=== PATIENT | female | born 1955 | race Caucasian/White ===

== ENCOUNTER 2019-08-09 15:43 | Outpatient (CLI) | payer BC, SELFPAY ==
--- NOTE | ~2019-08-09 | MM_ITS ---
EXAMINATION: MM screening aliyah BI w abbi HISTORY: Screening mammogram TECHNIQUE: Craniocaudal and mediolateral oblique 3-D tomosynthesis images were obtained and synthetic 2-D images were generated. CAD analysis was submitted and interpreted. COMPARISON: Comparison to multiple prior studies sequentially, with oldest reviewed study dated 01/26. BREAST PARENCHYMAL COMPOSITION: There are scattered areas of fibroglandular density. FINDINGS: There is no evidence of suspicious mass, calcification, or architectural distortion to sugg est malignancy in either breast. There has been no suspicious interval change. IMPRESSION: 1. No mammographic evidence of malignancy. 2. Recommend routine screening mammography in one year. BI-RADS Category 1: Negative Reviewed, dictated and finalized at location A. SIONAL BABYSITTER
== END 2019-08-09 15:44 | disposition home or self-care (01) ==
PROVIDERS: PCP Family Medicine; Visit Provider Physician Assistant
DX: Z12.31 Encounter for screening mammogram for malignant neoplasm of breast (principal)
CPT/HCPCS: 77063; 77067

== ENCOUNTER 2019-12-20 18:25 | Emergency (ER) | payer BC, SELFPAY ==
--- NOTE | ~2019-12-20 | XR_ITS ---
XR wrist LT min 3V 12/20/2019 19:21 Indication: Left wrist pain Procedure: 4 views left wrist Comparison: 04/05/2015 Findings: There is a healed distal radial fracture. There is mild dorsal tilt of the lunate. No evide nce for scapholunate dissociation. Osteopenia. No acute fracture or traumatic malalignment. No focal soft tissue abnormality. Impression: 1: No acute fracture. Reviewed, dictated and finalized at location A. Impression: 1: No acute fracture.
[2019-12-20 18:59] VITALS: BP 146/97; PULSE 77; RESP 18; TEMP 36.4; O2SAT 99
--- NOTE | 2019-12-20 19:16 | ED.UPPEXIN ---
HPI - Extremity Injury (Upper) General Chief Complaint: Extremity Injury, Upper Stated Complaint: left wrist pain Time Seen by Provider: 12/20/19 19:05 History of Present Illness HPI narrative: Patient is a 64-year-old female who presents ER with left wrist pain. She was walking outside and tripped over some IV. Fell on outstretched hand. Has tenderness over the dorsum of her wrist and over the ulnar aspect. Increased pain with extension and making a fist. Only slight swelling and no obvious bruising. She has no numbness or tingling. No trauma to her head. She is not on a blood thinner. Related Data Home Medications Medication Instructions Recorded Confirmed flaxseed oil 1,000 mg capsule 1,000 mg PO DAILY 04/29/19 12/20/19 fluoxetine 40 mg capsule 40 mg PO DAILY 04/29/19 12/20/19 furosemide 20 mg tablet 40 mg PO QAM tablet 04/29/19 12/20/19 multivitamin 1 tablet PO DAILY 04/29/19 12/20/19 omeprazole 20 mg PO DAILY 12/20/19 12/20/19 Allergies Allergy/AdvReac Type Severity Reaction Status Date / Time hydrocodone Allergy Intermediate JUST ABOUT Verified 12/20/19 19:11 PASSED OUT, CLAMMY codeine Allergy Unknown Sweating Verified 12/20/19 19:11 Sulfa (Sulfonamide Allergy Unknown Unknown Verified 12/20/19 19:11 Antibiotics) Review of Systems Musculoskeletal: Musculoskeletal: Reports arthralgias and Reports joint swelling Integumentary/Breasts: Skin/Breast: Denies erythema and Denies rash Comments: No abrasions Neurologic: Denies syncope, Denies focal weakness and Denies numbness [facility] Past Medical History Medical History (Updated 12/20/19 @ 19:41 by Abhijeet Last MD) Chronic gastroesophageal reflux disease Depression Diverticulitis Essential hypertension Surgical History Surgical History (Updated 12/20/19 @ 19:18 by Abhijeet Last MD) History of cholecystectomy S/P partial hysterectomy Family History Family History (Updated 07/23/18 @ 15:03 by DOCTOR UNKNOWN) Sibling Diabetes mellitus Hypertension Cerebrovascular accident Mother Family history of malignant neoplasm Father Carcinoma of colon Social History Social History (Updated 08/03/19 @ 09:14 by Dionna Shafer) Smoking status: Never smoker Alcohol intake: never Substance use: never Substance use type: does not use Gender identity (if verbalized by the patient): Female Exam Narrative: Exam Narrative: GENERAL: Well-appearing, well-nourished, and in no acute distress. HEART: Regular rate and rhythm. Normal peripheral pulses. EXTREMITIES: Focused exam left upper extremity reveals tenderness over the dorsal aspect of the wrist extending around to the lateral aspect. Limited extension due to pain but flexion is normal. No anatomic snuffbox tenderness. No numbness or tingling. Normal range of motion of the fingers and elbow. Only slight swelling over the dorsal aspect of the wrist. SKIN: Warm, dry, no rash. NEURO: No focal deficits. Alert and oriented x3. PSYCH: Normal mood and affect. Course Vital Signs Vital signs: Vital Signs Temperature 97.5 F L 12/20/19 18:59 Pulse Rate 77 12/20/19 18:59 Respiratory Rate 18 12/20/19 18:59 Blood Pressure 146/97 H 12/20/19 18:59 Pulse Oximetry 99 12/20/19 18:59 Temperature 97.5 F L 12/20/19 18:59 Pulse Rate 77 12/20/19 18:59 Respiratory Rate 18 12/20/19 18:59 Blood Pressure 146/97 H 12/20/19 18:59 Pulse Oximetry 99 12/20/19 18:59 MDM - Extremity Injury (Upper) Imaging Data Radiologist's impression: ITS Impressions Wrist X-Ray 12/20/19 19:22 Impression: 1: No acute fracture. Discharge Plan Discharge Clinical Impression: Left wrist sprain Patient Disposition: Home, Self-Care Condition: Stable Instructions: Wrist Sprain (ED) Additional Instructions: Return to the ER if you have chest pain or shortness of breath, cannot keep down food or water, you have fever over 100.4 degrees.
[2019-12-20 19:50] VITALS: BP 153/88; PULSE 74; RESP 18; TEMP 36.7; O2SAT 93
== END 2019-12-20 19:50 | disposition home or self-care (01) ==
PROVIDERS: Emergency Provider Emergency Medicine; PCP Family Medicine
DX: S63.502A Unspecified sprain of left wrist, initial encounter (principal); K21.9 Gastro-esophageal reflux disease without esophagitis; I10 Essential (primary) hypertension; F32.9 Major depressive disorder, single episode, unspecified; W18.09XA Striking against other object with subsequent fall, initial encounter
CPT/HCPCS: 73110; 99283

== ENCOUNTER 2020-05-16 07:24 | Outpatient (CLI) | payer BC, SELFPAY ==
[2020-05-16 07:43] LABS: Basophils Percent Auto 0.7 % (0.2-1.2); Eosinophils Absolute Auto 0.3 K/mm3 (0-0.3); Eosinophils Percent Auto 4.2 % (0-4.4); Hematocrit 34.8 % (37.0-47.0); Hemoglobin 11.5 g/dL (12.0-15.0); Immature Granulocyte Absolute 0.02 K/mm3 (0.00-0.031); Immature Granulocyte Percent A 0.3 % (0-0.5); Lymphocytes Absolute Auto 1.83 K/mm3 (0.9-3.2); Lymphocytes Percent Auto 30.9 % (18.3-44.2); Mean Corpuscular Hemoglobin 29.1 pg (26-34); Mean Corpuscular Volume 88.1 fl (80-100); Mean Platelet Volume 10.3 fl (7.4-10.4); Monocytes Absolute Auto 0.5 K/mm3 (0.1-0.6); Monocytes Percent Auto 7.8 % (2.6-8.5); Neutrophils Absolute Auto 3.3 K/mm3 (1.3-6.7); Neutrophils Percent Auto 56.1 % (45.5-73.1); Platelet Count Result 222 k/mm3 (150-375); Red Blood Count 3.95 M/mm3 (4.2-5.4); Red Cell Distribution Width 12.7 % (11.5-14.5); White Blood Count 5.9 K/mm3 (4.5-10.0)
[2020-05-16 07:52] LABS: Alanine Aminotransferase 20 U/L (4-35); Albumin Level 4.1 g/dL (3.5-5.1); Alkaline Phosphatase 91 U/L (38-126); Anion Gap 6 mmol/L (8-16); Aspartate Amino Transferase 28 U/L (14-36); Bilirubin,Total 0.5 mg/dL (0.2-1.3); Blood Urea Nitrogen 14 mg/dL (7-17); Carbon Dioxide 31 mmol/L (22-30); Chloride 102 mmol/L (98-107); Cholesterol 191 mg/dL (0-200); Estimated Glomerular Filt Rate > 60; Glucose 103 mg/dL (65-105); HDL Direct 57 mg/dL; Potassium 4.2 mmol/L (3.4-5.0); Sodium 139 mmol/L (137-145); Triglycerides 167 mg/dL (<150)
[2020-05-16 08:03] LABS: LDL Cholesterol Direct 79 mg/dL
[2020-05-16 08:48] LABS: Iron 67 ug/dL (37-170)
[2020-05-16 08:57] LABS: Percent Iron Saturation 18 % (20-50)
[2020-05-16 09:04] LABS: Folic Acid > 20.0 ng/mL (2.76->20)
== END 2020-05-16 07:25 | disposition home or self-care (01) ==
PROVIDERS: PCP Family Medicine; Visit Provider Nurse Practitioner Family
DX: E78.2 Mixed hyperlipidemia (principal); D64.9 Anemia, unspecified; I10 Essential (primary) hypertension
CPT/HCPCS: 36415; 80053; 80061; 82607; 82728; 82746; 83540; 83550; 85025

== ENCOUNTER 2021-01-14 18:01 | Emergency (ER) | payer OTHER, SELFPAY ==
--- NOTE | ~2021-01-14 | XR_ITS ---
EXAMINATION: XR hand RT min 3V DATE: 01/14/2021 18:17 INDICATION: Right hand injury. TECHNIQUE: 3 views of right hand were obtained. COMPARISON: Right hand radiographs 12/28/2016 FINDINGS: Bone alignment is normal. No fracture. There is mild osteoarthritis of first carpometacarpa l joint, first and second metacarpophalangeal joints, and many of the interphalangeal joints. There i s moderate osteoarthritis of second and third distal interphalangeal joints. IMPRESSION: 1. Polyarticular osteoarthritis. Reviewed, dictated and finalized at location A.
[2021-01-14 18:17] VITALS: BP 123/69; PULSE 63; RESP 16; TEMP 36.4; O2SAT 99
--- NOTE | 2021-01-14 18:20 | ED.GENADULT ---
HPI - General Adult General Chief complaint: Extremity Injury, Upper Stated complaint: rt hand middle finger injury Source: patient Mode of arrival: ambulatory Limitations: no limitations History of Present Illness HPI narrative: 65 y/o female. PMHx includes GERD, HTN. Presents to [facility] today with acute complaints of RT middle finger injury/pain S/P moving incident last HS. Client tells me that she had been moving a couch through a 'tight doorway' when she jammed her finger into the door frame . She notes to have been experiencing increased bruising and pain to area since incident. Ice pack application has provided some relief. No additional acute complaints of injury has been relayed upon exam. Related Data Home Medications Medication Instructions Recorded Confirmed flaxseed oil 1,000 mg capsule 1,000 mg PO DAILY 04/29/19 01/08/21 multivitamin 1 tablet PO DAILY 04/29/19 01/08/21 Allergies Allergy/AdvReac Type Severity Reaction Status Date / Time hydrocodone Allergy Intermediate JUST ABOUT Verified 01/14/21 18:22 PASSED OUT, CLAMMY codeine Allergy Unknown Sweating Verified 01/14/21 18:22 Sulfa (Sulfonamide Allergy Unknown Unknown Verified 01/14/21 18:22 Antibiotics) Review of Systems Review of Systems: CONSTITUTIONAL: Denies fever, chills, sweats. EYES: Denies visual changes, redness, discharge. ENT: Denies rhinorrhea, congestion, sore throat, otalgia. CARDIOVASCULAR: Denies chest pain, palpitations, edema. RESPIRATORY: Denies dyspnea, wheezing, cough GASTROINTESTINAL: Denies abdominal pain, nausea, vomiting, diarrhea. GENITOURINARY: Denies dysuria, hematuria, abnormal discharge SKIN: Denies rash or itching. MUSCULOSKELETAL: RT middle finger pain, injury. Denies additional joint pain, or myalgia. NEUROLOGIC: Denies numbness, or focal weakness. PSYCHIATRIC: Denies anxiety or depression. All systems reviewed & are unremarkable except as noted in HPI and below PMFSH Past Medical History Medical History Chronic gastroesophageal reflux disease Depression Diverticulitis Essential hypertension Surgical History Surgical History History of cholecystectomy S/P partial hysterectomy Family History Family History Sibling Diabetes mellitus Hypertension Cerebrovascular accident Mother Family history of malignant neoplasm Father Carcinoma of colon Social History Social History Smoking status: Never smoker Alcohol intake: never Substance use: never Substance use type: does not use Gender identity (if verbalized by the patient): Female Exam Narrative: GENERAL: This is a well-nourished, well-developed adult, in no apparent distress. HEAD: normocephalic, atraumatic. EYES: PERRL. Sclera clear/white. EARS: External ears normal, auditory canals clear and without drainage, TMs normal. NOSE: External nose normal. Positive Rhinorrhea, no obstruction, nares patent. THROAT: Mucous membranes moist, posterior pharynx clear. No exudates. NECK: Neck supple, non-tender without lymphadenopathy, masses or thyromegaly. CARDIOVASCULAR: Regular rate and rhythm without murmurs, gallops, or rubs. Normal pulses RUE. RESPIRATORY: Clear to auscultation. Breath sounds equal bilaterally. No wheezes, rales, or rhonchi. GASTROINTESTINAL: Abdomen soft, non-tender, nondistended. Bowel sounds are active. No guarding. SKIN: warm, intact with no suspicious lesions or rash, good texture and turgor. NEURO: Normal sensation and discrimination RUE. No focal neurologic deficits. MUSCULOSKELETAL: With mild soft tissue swelling and ecchymosis overlying RT middle PIP. I do not appreciate an obvious bony deformity. ROM is intact. Remainder of musculoskeletal exam is Negative.
== END 2021-01-14 18:49 | disposition home or self-care (01) ==
PROVIDERS: Emergency Provider Nurse Practitioner Adult Health; PCP Family Medicine
DX: S63.632A Sprain of interphalangeal joint of right middle finger, initial encounter (principal); W22.09XA Striking against other stationary object, initial encounter; K21.9 Gastro-esophageal reflux disease without esophagitis; I10 Essential (primary) hypertension; F32.9 Major depressive disorder, single episode, unspecified; Z90.711 Acquired absence of uterus with remaining cervical stump
CPT/HCPCS: 73130; 99213; G0463

== ENCOUNTER 2021-03-19 01:42 | Day surgery (SDC) | payer OTHER, SELFPAY ==
[2021-03-07 12:13] VITALS: BMI 32.5
[2021-03-19 06:58] VITALS: BP 149/88; PULSE 77; RESP 17; TEMP 36.1; O2SAT 97
[2021-03-19] MEDS: LACTATED RINGERS 1,000 ML 150 ML IV CONT (07:10)
--- NOTE | 2021-03-19 07:51 | P.PNAN_ITS ---
Anes - Initial Pre Proc Eval Procedure: Operation Date: 03/19/21 08:00 Proposed Procedures p Screening Colonoscopy - Vishal Pierce MD Date/Time: 03/19/21 07:52 Surgeon: Vishal Pierce MD Pre Op Diagnosis: family hx of colon ca Patient Data Age: 65 Gender: F Height: 1.65 m Weight: 99.2 kg Last Vital Signs Temp 97.0 F L 03/19/21 06:58 Pulse 77 03/19/21 06:58 Resp 17 03/19/21 06:58 BP 149/88 H 03/19/21 06:58 Pulse Ox 97 03/19/21 06:58 Allergies Allergy/AdvReac Type Severity Reaction Status Date / Time hydrocodone Allergy Intermediate JUST ABOUT Verified 03/19/21 06:55 PASSED OUT, CLAMMY codeine Allergy Mild Sweating Verified 03/19/21 06:55 Sulfa (Sulfonamide Allergy Unknown Unknown Verified 03/19/21 06:55 Antibiotics) Home Medications Medication Instructions Recorded Confirmed Type flaxseed oil 1,000 mg capsule 1,000 mg PO DAILY 04/29/19 03/07/21 History multivitamin 1 tablet PO DAILY 04/29/19 03/07/21 History aspirin 81 mg tablet,delayed 81 mg PO DAILY #1 tablet 05/29/20 03/07/21 Rx release omeprazole 20 mg capsule,delayed 20 mg PO DAILY #90 cap 12/04/20 03/07/21 Rx release fluoxetine 40 mg capsule 40 mg PO DAILY #90 cap 02/25/21 03/07/21 Rx furosemide 20 mg tablet 20 mg PO QAM #90 tablet 02/25/21 03/07/21 Rx quinapril 20 mg tablet 20 mg PO DAILY #90 tablet 02/25/21 03/07/21 Rx Patient hx anesthesia problems: none Family hx anesthesia problems: none Results Review: All pre-operative results and documents have been reviewed as part of the pre-operative evaluation. [facility] Past Medical History Medical History Chronic gastroesophageal reflux disease Depression Diverticulitis Essential hypertension Surgical History Surgical History History of cholecystectomy S/P partial hysterectomy Family History Family History Sibling Diabetes mellitus Hypertension Cerebrovascular accident Mother Family history of malignant neoplasm Father Carcinoma of colon Social History Social History (System 02/27/21 @ 07:42 by Kristina Morin) Smoking status: Never smoker Alcohol intake: never Substance use: never Substance use type: does not use Living arrangements: with family Gender identity (if verbalized by the patient): Female Spiritual care concerns: No Anes - Eval Final PreProcedure Day of Procedure 03/19/21 07:52 Patient weight: obese Heart: regular rate and rhythm Lungs: clear to auscultation Airway: Mallampati scale class II Neurological: alert and oriented Last oral intake: >/= 8 hours ASA classification: III Emergent: no Anesthetic plan: proceed Anesthesia type and monitoring: general GIVS and standard monitoring Results Review: All pre-operative results and documents have been reviewed as part of the pre-operative evaluation. Informed Consent: The patient's anesthetic plan and its attendant risks and benefits were discussed with the patient/family/POA. Questions were solicited and answers provided to the satisfaction of the patient/family/POA.
--- NOTE | 2021-03-19 08:10 | WPDGICN ---
Assessment and Plan Assessment and plan (1) Family history of colon cancer in father: Code(s): Z80.0 - Family history of malignant neoplasm of digestive organs Status: Acute Assessment and Plan: Patient's father has had colon cancer for this reason screening colonoscopy is been advised 5 year intervals. Colonoscopy will be arranged further recommendations will be given after endoscopy. GI Consult Note Consult date/time: 03/19/21 08:10 HPI: Valeria Weaver is a 65 year old female Presents for screening colonoscopy. Patient's family history is significant her father had colon cancer. Patient reports that her weight appetite bowel movements are normal. Her last colonoscopy 5 years ago was unremarkable. She presents today for follow-up screening colonoscopy. Review of Systems Review of Systems: All systems reviewed & are unremarkable except as noted in HPI and below PMFSH Past Medical History Medical History Chronic gastroesophageal reflux disease Depression Diverticulitis Essential hypertension Surgical History Surgical History History of cholecystectomy S/P partial hysterectomy Family History Family History Sibling Diabetes mellitus Hypertension Cerebrovascular accident Mother Family history of malignant neoplasm Father Carcinoma of colon Social History Social History (System 02/27/21 @ 07:42 by Kristina Morin) Smoking status: Never smoker Alcohol intake: never Substance use: never Substance use type: does not use Living arrangements: with family Gender identity (if verbalized by the patient): Female Spiritual care concerns: No Meds Home Medications and Allergies Home Medications Medication Instructions Recorded Confirmed Type flaxseed oil 1,000 mg capsule 1,000 mg PO DAILY 04/29/19 03/07/21 History multivitamin 1 tablet PO DAILY 04/29/19 03/07/21 History aspirin 81 mg tablet,delayed 81 mg PO DAILY #1 tablet 05/29/20 03/07/21 Rx release omeprazole 20 mg capsule,delayed 20 mg PO DAILY #90 cap 12/04/20 03/07/21 Rx release fluoxetine 40 mg capsule 40 mg PO DAILY #90 cap 02/25/21 03/07/21 Rx furosemide 20 mg tablet 20 mg PO QAM #90 tablet 02/25/21 03/07/21 Rx quinapril 20 mg tablet 20 mg PO DAILY #90 tablet 02/25/21 03/07/21 Rx Allergies Allergy/AdvReac Type Severity Reaction Status Date / Time hydrocodone Allergy Intermediate JUST ABOUT Verified 03/19/21 06:55 PASSED OUT, CLAMMY codeine Allergy Mild Sweating Verified 03/19/21 06:55 Sulfa (Sulfonamide Allergy Unknown Unknown Verified 03/19/21 06:55 Antibiotics) Vital Signs Vital Signs - 24 hr 03/19/21 06:58 Temperature 97.0 F L Pulse Rate 77 Respiratory Rate 17 Blood Pressure 149/88 H Pulse Oximetry 97 Exam Narrative: physical exam reveals patient to be alert. Vital signs stable. HEENT exam is unremarkable. Patient is anicteric. Lungs are clear to auscultation and percussion. Heart is without murmur or extra sounds. Abdominal exam bowel sounds are present soft nontender with no organomegaly. Digital external rectal exam is normal.
[2021-03-19 08:38] VITALS: BP 107/61; PULSE 56; RESP 22; O2SAT 96
[2021-03-19 08:48] VITALS: BP 121/77; PULSE 61; RESP 16; O2SAT 100
[2021-03-19 08:58] VITALS: BP 135/82; PULSE 58; RESP 17; O2SAT 100
== END 2021-03-19 09:08 | disposition home or self-care (01) ==
PROVIDERS: PCP Family Medicine; Visit Provider Internal Medicine Gastroenterology
PROC: 0DJD8ZZ Inspection of Lower Intestinal Tract, Via Natural or Artificial Opening Endoscopic (ICD-10-PCS; CPT 45378; principal; 2021-03-19 08:00)
DX: Z12.11 Encounter for screening for malignant neoplasm of colon (principal); K62.1 Rectal polyp; K64.8 Other hemorrhoids; K57.30 Diverticulosis of large intestine without perforation or abscess without bleeding; Z80.0 Family history of malignant neoplasm of digestive organs; K21.9 Gastro-esophageal reflux disease without esophagitis; F32.9 Major depressive disorder, single episode, unspecified; I10 Essential (primary) hypertension; Z79.82 Long term (current) use of aspirin; E66.9 Obesity, unspecified; Z68.36 Body mass index [BMI] 36.0-36.9, adult
CPT/HCPCS: 45385; 88305; J7120

== ENCOUNTER 2021-04-19 07:50 | Outpatient (CLI) | payer OTHER, SELFPAY ==
--- NOTE | ~2021-04-19 | MM_ITS ---
EXAMINATION: MM screening aliyah BI w abbi HISTORY: Screening TECHNIQUE: Craniocaudal and mediolateral oblique 3-D tomosynthesis images were obtained and synthetic 2-D images were generated. CAD analysis was submitted and interpreted. COMPARISON: 08/09/2019. BREAST PARENCHYMAL COMPOSITION: There are scattered areas of fibroglandular density. FINDINGS: There is no evidence of suspicious mass, calcification, or architectural distortion to sugg est malignancy in either breast. There has been no suspicious interval change. IMPRESSION: 1. No mammographic evidence of malignancy. 2. Recommend routine screening mammography in one year. BI-RADS Category 1: Negative Reviewed, dictated and finalized at location A.
--- NOTE | ~2021-04-19 | DEXA_ITS ---
Bone Density Report Name: Valeria Weaver Age: 66 Sex: Female Ethnicity: White Date of : 1955 Indication: postmenopausal; height loss; prior fracture; hysterectomy; Referring Provider: Vitaly Dwyer Study: Bone densitometry was performed. Exam Date: April 19, 2021 Accession number: [id number] Bone Density: Region BMD T-score Z-score Classification AP Spine (L1-L4) 1.313 2.4 4.2 Normal Femoral Neck (Left) 0.669 -1.6 -0.1 Osteopenia Total Hip (Left) 0.839 -0.8 0.4 Normal Total Hip Bilateral Avg 0.830 -0.9 0.4 Normal Femoral Neck (Right) 0.660 -1.7 -0.1 Osteopenia Total Hip (Right) 0.821 -1.0 0.3 Normal World Health Organization criteria for BMD impression classify patients as: Normal (T-score at or above -1.0), Osteopenia (T-score between -1.0 and -2.5), or Osteoporosis (T-score at or below -2.5). 10-year Fracture Risk(1): Major Osteoporotic Fracture 14% Hip Fracture 1.7% Reported Risk Factors: [place] (), Neck BMD=0.660, BMI=39.2, previous fracture (1) FRAX(R) Version 3.08. Fracture probability calculated for an untreated patient. Fracture probability may be lower if the patient has received treatment. Clinical Information Provided by Patient: Has had a low trauma fracture Has used the following medications: Vitamin D, Calcium Has the following medical conditions: Hysterectomy Patient maximum height was 66.5 Menopause Age: 48 No regular weight bearing exercise Drinks caffeinated beverages Onset of menses at age 12 Number of children 1 Impression: The patient has low bone mass, based on the Right Femoral Neck T-score. The patient has an estimated ten-year risk of hip fracture of 1.7% and an estimated ten-year risk of major fracture of 14%, based on the WHO FRAX algorithm. The patient has risk factors, including: previous fracture. Discussion: BONE DENSITY IS LOW AT ONE OR MORE SKELETAL SITES. This patient's lowest T-score is low at one or more skeletal sites. It meets the World Health Organization's (WHO) criteria for ?low bone mass? (T-score between -1.0 and -2.5). The patient's 10-year risk of fracture as calculated by FRAX is less than the threshold where pharmacological therapy is recommended by the National Osteoporosis Foundation (NOF). However, all treatment decisions require clinical judgment and consideration of individual patient factors, including patient preferences, comorbidities, previous drug use, risk factors not captured in the FRAX model (e.g., frailty, falls, vitamin D deficiency, increased bone turnover, interval significant decline in bone density) and possible under or overestimation of fracture risk by FRAX. The patient should follow a healthful lifestyle (good nutrition with adequate calcium and vitamin D, and appropriate weight-bearing exercise). Follow-Up
== END 2021-04-19 07:51 | disposition home or self-care (01) ==
LOC: ANHIMG 07:54
PROVIDERS: PCP Family Medicine; Visit Provider Physician Assistant
DX: Z12.31 Encounter for screening mammogram for malignant neoplasm of breast (principal); Z78.0 Asymptomatic menopausal state; M85.852 Other specified disorders of bone density and structure, left thigh; M85.851 Other specified disorders of bone density and structure, right thigh
CPT/HCPCS: 77063; 77067; 77080

== ENCOUNTER 2021-07-12 08:28 | Outpatient (CLI) | payer MEDICARE, SELFPAY ==
[2021-07-12 08:55] LABS: Basophils Absolute Auto 0.1 K/mm3 (0.0-0.1); Eosinophils Absolute Auto 0.3 K/mm3 (0-0.3); Eosinophils Percent Auto 5.4 % (0-4.4); Hematocrit 35.5 % (37.0-47.0); Hemoglobin 11.7 g/dL (12.0-15.0); Immature Granulocyte Absolute 0.01 K/mm3 (0.00-0.031); Immature Granulocyte Percent A 0.2 % (0-0.5); Lymphocytes Absolute Auto 1.63 K/mm3 (0.9-3.2); Lymphocytes Percent Auto 31.3 % (18.3-44.2); Mean Corpuscular Hemoglobin 29.8 pg (26-34); Mean Corpuscular Volume 90.3 fl (80-100); Mean Platelet Volume 10.9 fl (7.4-10.4); Monocytes Absolute Auto 0.4 K/mm3 (0.1-0.6); Monocytes Percent Auto 7.1 % (2.6-8.5); Neutrophils Absolute Auto 2.9 K/mm3 (1.3-6.7); Platelet Count Result 224 k/mm3 (150-375); Red Blood Count 3.93 M/mm3 (4.2-5.4); Red Cell Distribution Width 12.9 % (11.5-14.5); White Blood Count 5.2 K/mm3 (4.5-10.0)
[2021-07-12 09:08] LABS: Add Urine Microscopic? NO; Appearance Urine Clear (Clear); Bilirubin Urine Negative (Negative); Blood Urine Negative (Negative); Color Urine Yellow (Yellow); Glucose Urine UA Negative (Negative); Ketones Urine Negative (Negative); Leukocyte Esterase Ur Negative LEU/UL (NEGATIVE); Nitrate Urine Negative (Negative); Protein Urine Negative (Negative); Specific Grav Ur 1.017 (1.001-1.035); Urobilinogen Urine Negative mg/dL (<2.0)
[2021-07-12 09:41] LABS: Alanine Aminotransferase 21 U/L (4-35); Albumin Level 4.3 g/dL (3.5-5.1); Alkaline Phosphatase 92 U/L (38-126); Anion Gap 4 mmol/L (8-16); Aspartate Amino Transferase 29 U/L (14-36); Bilirubin,Total 0.6 mg/dL (0.2-1.3); Blood Urea Nitrogen 11 mg/dL (7-17); Carbon Dioxide 27 mmol/L (22-30); Chloride 106 mmol/L (98-107); Cholesterol 194 mg/dL (0-200); Estimated Glomerular Filt Rate > 60; Glucose 103 mg/dL (65-110); HDL Direct 56 mg/dL; Potassium 4.3 mmol/L (3.4-5.0); Sodium 137 mmol/L (137-145); Triglycerides 139 mg/dL (<150)
[2021-07-12 09:43] LABS: Iron 89 ug/dL (37-170)
[2021-07-12 09:54] LABS: LDL Cholesterol Direct 81 mg/dL
[2021-07-12 10:03] LABS: Percent Iron Saturation 24 % (20-50)
[2021-07-12 10:44] LABS: Folic Acid > 20.0 ng/mL (2.76->20)
== END 2021-07-12 08:29 | disposition home or self-care (01) ==
PROVIDERS: PCP Family Medicine; Visit Provider Physician Assistant
DX: D64.9 Anemia, unspecified (principal); K21.9 Gastro-esophageal reflux disease without esophagitis; F33.1 Major depressive disorder, recurrent, moderate; E78.5 Hyperlipidemia, unspecified; I10 Essential (primary) hypertension
CPT/HCPCS: 36415; 80053; 80061; 81003; 82607; 82728; 82746; 83540; 83550; 84443; 85025

== ENCOUNTER 2022-01-21 09:23 | Outpatient (CLI) | payer MEDICARE, SELFPAY ==
[2022-01-21 10:19] LABS: Hemoglobin A1C 5.4 % (<5.7)
[2022-01-21 10:21] LABS: Basophils Absolute Auto 0.1 K/mm3 (0.0-0.1); Basophils Percent Auto 1.2 % (0.2-1.2); Eosinophils Absolute Auto 0.3 K/mm3 (0-0.3); Eosinophils Percent Auto 4.3 % (0-4.4); Hematocrit 36.8 % (37.0-47.0); Hemoglobin 11.5 g/dL (12.0-15.0); Immature Granulocyte Absolute 0.02 K/mm3 (0.00-0.031); Immature Granulocyte Percent A 0.3 % (0-0.5); Lymphocytes Absolute Auto 1.66 K/mm3 (0.9-3.2); Lymphocytes Percent Auto 27.4 % (18.3-44.2); Mean Corpuscular HGB Conc 31.3 g/dl (32-36); Mean Corpuscular Hemoglobin 28.7 pg (26-34); Mean Corpuscular Volume 91.8 fl (80-100); Mean Platelet Volume 10.8 fl (7.4-10.4); Monocytes Absolute Auto 0.5 K/mm3 (0.1-0.6); Monocytes Percent Auto 7.4 % (2.6-8.5); Neutrophils Absolute Auto 3.6 K/mm3 (1.3-6.7); Neutrophils Percent Auto 59.4 % (45.5-73.1); Platelet Count Result 251 k/mm3 (150-375); Red Blood Count 4.01 M/mm3 (4.2-5.4); Red Cell Distribution Width 13.5 % (11.5-14.5); White Blood Count 6.1 K/mm3 (4.5-10.0)
[2022-01-21 10:26] LABS: Alanine Aminotransferase 21 U/L (6-35); Albumin Level 4.3 g/dL (3.5-5.1); Alkaline Phosphatase 91 U/L (38-126); Anion Gap 9 mmol/L (8-16); Aspartate Amino Transferase 25 U/L (14-36); Bilirubin,Total 0.4 mg/dL (0.2-1.3); Blood Urea Nitrogen 12 mg/dL (7-17); Calcium 8.9 mg/dL (8.4-10.2); Carbon Dioxide 27 mmol/L (22-30); Chloride 102 mmol/L (98-107); Cholesterol 216 mg/dL (0-200); Estimated Glomerular Filt Rate > 60; Glucose 106 mg/dL (65-110); HDL Direct 62 mg/dL; Iron 70 ug/dL (37-170); Potassium 4.4 mmol/L (3.4-5.0); Sodium 138 mmol/L (137-145); Triglycerides 159 mg/dL (<150)
[2022-01-21 10:35] LABS: Percent Iron Saturation 18 % (20-50)
[2022-01-21 10:36] LABS: LDL Cholesterol Direct 89 mg/dL
[2022-01-21 10:59] LABS: Appearance Urine Clear (Clear); Bilirubin Urine Negative (Negative); Color Urine Yellow (Yellow); Glucose Urine UA Negative (Negative); Ketones Urine Negative (Negative); Leukocyte Esterase Ur Negative LEU/UL (NEGATIVE); Nitrate Urine Negative (Negative); Protein Urine Negative (Negative); Urobilinogen Urine 0.2 mg/dL (<2.0)
[2022-01-21 11:03] LABS: Add Urine Microscopic? YES; Blood Urine Trace-Intact (Negative)
[2022-01-21 11:09] LABS: Mucus Urine Rare /lpf; RBC Urine 0-2 /hpf (0-2); Squamous Epithelial Cell Urine Rare /hpf (Few); WBC Urine 0-3 /hpf (0-3)
[2022-01-21 11:41] LABS: Folic Acid > 20.0 ng/mL (2.76->20)
== END 2022-01-21 09:24 | disposition home or self-care (01) ==
LOC: ANHLAB 09:29
PROVIDERS: PCP Family Medicine; Visit Provider Physician Assistant
DX: D64.9 Anemia, unspecified (principal); E78.5 Hyperlipidemia, unspecified; I10 Essential (primary) hypertension; F33.1 Major depressive disorder, recurrent, moderate; K21.9 Gastro-esophageal reflux disease without esophagitis; M19.91 Primary osteoarthritis, unspecified site; R73.01 Impaired fasting glucose
CPT/HCPCS: 36415; 80053; 80061; 81001; 82607; 82728; 82746; 83036; 83540; 83550; 84443; 85025

== ENCOUNTER 2022-04-22 11:30 | Outpatient (CLI) | payer MEDICARE, SELFPAY ==
[2022-04-22 11:44] LABS: Basophils Absolute Auto 0.1 K/mm3 (0.0-0.1); Eosinophils Absolute Auto 0.2 K/mm3 (0-0.3); Eosinophils Percent Auto 3.8 % (0-4.4); Hematocrit 35.5 % (37.0-47.0); Hemoglobin 11.5 g/dL (12.0-15.0); Immature Granulocyte Absolute 0.02 K/mm3 (0.00-0.031); Immature Granulocyte Percent A 0.3 % (0-0.5); Immature Reticulocyte Fraction 10.1 % (3.0-15.9); Lymphocytes Absolute Auto 1.49 K/mm3 (0.9-3.2); Lymphocytes Percent Auto 24.7 % (18.3-44.2); Mean Corpuscular HGB Conc 32.4 g/dl (32-36); Mean Corpuscular Hemoglobin 29.3 pg (26-34); Mean Corpuscular Volume 90.6 fl (80-100); Mean Platelet Volume 10.4 fl (7.4-10.4); Monocytes Absolute Auto 0.5 K/mm3 (0.1-0.6); Monocytes Percent Auto 8.1 % (2.6-8.5); Neutrophils Absolute Auto 3.7 K/mm3 (1.3-6.7); Neutrophils Percent Auto 62.1 % (45.5-73.1); Platelet Count Result 263 k/mm3 (150-375); Red Blood Count 3.92 M/mm3 (4.2-5.4); Red Cell Distribution Width 12.7 % (11.5-14.5); Reticulocyte Hemoglobin Conten 32.6 pg (28.2-35.7); Reticulocyte Percent 1.88 % (0.7-4.3); Reticulocytes Absolute 0.07 B/L (32.2-175.7)
[2022-04-22 15:38] LABS: Iron 75 ug/dL (37-170)
[2022-04-22 15:41] LABS: Alanine Aminotransferase 31 U/L (6-35); Albumin Level 4.5 g/dL (3.5-5.1); Alkaline Phosphatase 112 U/L (38-126); Anion Gap 12 mmol/L (8-16); Aspartate Amino Transferase 30 U/L (14-36); Bilirubin,Total 0.5 mg/dL (0.2-1.3); Blood Urea Nitrogen 15 mg/dL (7-17); Calcium 8.9 mg/dL (8.4-10.2); Carbon Dioxide 27 mmol/L (22-30); Chloride 102 mmol/L (98-107); Estimated Glomerular Filt Rate > 60; Glucose 89 mg/dL (65-110); Lactate Dehydrogenase 223 U/L (120-246); Potassium 4.3 mmol/L (3.4-5.0); Sodium 141 mmol/L (137-145)
[2022-04-22 15:50] LABS: Percent Iron Saturation 17 % (20-50)
[2022-04-22 17:02] LABS: Folic Acid > 20.0 ng/mL (2.76->20)
[2022-04-25 09:34] LABS: Methylmalonic Acid 205 nmol/L (87-318)
[2022-04-28 18:41] LABS: Soluble Transferrin Receptor 1.46 mg/L (0.76-1.76)
== END 2022-04-22 11:31 | disposition home or self-care (01) ==
LOC: ANHLAB 11:31
PROVIDERS: PCP Physician Assistant; Visit Provider Internal Medicine Hematology & Oncology
DX: D64.9 Anemia, unspecified (principal)
CPT/HCPCS: 36415; 80053; 82607; 82728; 82746; 83540; 83550; 83615; 83921; 84238; 85025; 85046

== ENCOUNTER 2022-04-30 10:24 | Outpatient (CLI) | payer MEDICARE, SELFPAY ==
--- NOTE | ~2022-04-30 | MM_ITS ---
EXAMINATION: MM screening aliyah BI w abbi HISTORY: Screening TECHNIQUE: Craniocaudal and mediolateral oblique 3-D tomosynthesis images were obtained and synthetic 2-D images were generated. CAD analysis was submitted and interpreted. COMPARISON: Comparison to multiple prior studies sequentially, with oldest reviewed study dated 09/2015. BREAST PARENCHYMAL COMPOSITION: The breasts are almost entirely fatty. FINDINGS: There is no evidence of suspicious mass, calcification, or architectural distortion to sugg est malignancy in either breast. There has been no suspicious interval change. IMPRESSION: 1. No mammographic evidence of malignancy. 2. Recommend routine screening mammography in one year. BI-RADS Category 1: Negative Reviewed, dictated and finalized at location A. OGRAPHER APPRENTICE
== END 2022-04-30 10:25 | disposition home or self-care (01) ==
PROVIDERS: PCP Physician Assistant; Visit Provider Physician Assistant
DX: Z12.31 Encounter for screening mammogram for malignant neoplasm of breast (principal)
CPT/HCPCS: 77063; 77067

== ENCOUNTER 2022-08-05 12:46 | Outpatient (CLI) | payer MEDICARE, SELFPAY ==
[2022-08-05 12:58] LABS: Basophils Absolute Auto 0.1 K/mm3 (0.0-0.1); Basophils Percent Auto 0.9 % (0.2-1.2); Eosinophils Absolute Auto 0.2 K/mm3 (0-0.3); Eosinophils Percent Auto 3.8 % (0-4.4); Hematocrit 38.2 % (37.0-47.0); Hemoglobin 12.2 g/dL (12.0-15.0); Immature Granulocyte Absolute 0.03 K/mm3 (0.00-0.031); Immature Granulocyte Percent A 0.5 % (0-0.5); Mean Corpuscular HGB Conc 31.9 g/dl (32-36); Mean Platelet Volume 10.4 fl (7.4-10.4); Monocytes Absolute Auto 0.5 K/mm3 (0.1-0.6); Monocytes Percent Auto 7.8 % (2.6-8.5); Neutrophils Absolute Auto 3.5 K/mm3 (1.3-6.7); Platelet Count Result 262 k/mm3 (150-375); White Blood Count 5.8 K/mm3 (4.5-10.0)
[2022-08-05 14:08] LABS: Iron 94 ug/dL (37-170)
[2022-08-05 14:09] LABS: Anion Gap 4 mmol/L (8-16); Blood Urea Nitrogen 15 mg/dL (7-17); Carbon Dioxide 30 mmol/L (22-30); Chloride 104 mmol/L (98-107); Estimated Glomerular Filt Rate > 60; Glucose 111 mg/dL (65-110); Potassium 4.5 mmol/L (3.4-5.0); Sodium 138 mmol/L (137-145)
[2022-08-05 14:17] LABS: Percent Iron Saturation 24 % (20-50)
[2022-08-05 15:15] LABS: Folic Acid > 20.0 ng/mL (2.76->20); Vitamin B12 > 1000.0 pg/mL (239-931)
== END 2022-08-05 12:47 | disposition home or self-care (01) ==
LOC: ANHLAB 12:48
PROVIDERS: PCP Physician Assistant; Visit Provider Internal Medicine Hematology & Oncology
DX: D64.9 Anemia, unspecified (principal)
CPT/HCPCS: 36415; 80048; 82607; 82728; 82746; 83540; 83550; 85025

== ENCOUNTER 2022-09-12 13:15 | Outpatient (CLI) | payer MEDICARE, SELFPAY ==
[2022-09-12 14:16] LABS: Alanine Aminotransferase 25 U/L (6-35); Albumin Level 4.3 g/dL (3.5-5.1); Alkaline Phosphatase 100 U/L (38-126); Anion Gap 5 mmol/L (8-16); Aspartate Amino Transferase 27 U/L (14-36); Bilirubin,Total 0.5 mg/dL (0.2-1.3); Blood Urea Nitrogen 13 mg/dL (7-17); Calcium 8.8 mg/dL (8.4-10.2); Carbon Dioxide 30 mmol/L (22-30); Chloride 103 mmol/L (98-107); Estimated Glomerular Filt Rate > 60; Glucose 110 mg/dL (65-110); Potassium 4.4 mmol/L (3.4-5.0); Sodium 138 mmol/L (137-145)
[2022-09-12 14:27] LABS: Hemoglobin A1C 5.5 % (<5.7)
== END 2022-09-12 13:16 | disposition home or self-care (01) ==
PROVIDERS: PCP Physician Assistant; Visit Provider Physician Assistant
DX: R73.01 Impaired fasting glucose (principal); I10 Essential (primary) hypertension
CPT/HCPCS: 36415; 80053; 83036

== ENCOUNTER 2023-03-07 18:53 | Emergency (ER) | payer MEDICARE, SELFPAY ==
--- NOTE | 2023-03-07 18:56 | ED.ANIMALBIT ---
HPI - Animal Bite General Chief Complaint: Animal Bite Stated Complaint: Dog Bite Right Hand Time Seen by Provider: 03/07/23 18:55 Source: patient Mode of arrival: ambulatory Limitations: no limitations History of Present Illness HPI narrative: Valeria is a 67-year-old female patient presenting to clinic today with complaints of a dog bite to her right hand. She reports that her son's dog bit her this evening. States the dog initially but her and whenever she was down trying to clean up the blood the dog bit her on her right hand. She has a laceration to the right lateral thumb and the right lateral palm. Bleeding is controlled, tetanus is up-to-date Related Data Home Medications Medication Instructions Recorded Confirmed flaxseed oil 1,000 mg capsule 1,000 mg PO DAILY 04/29/19 09/18/22 multivitamin 1 tablet PO DAILY 04/29/19 09/18/22 Allergies Allergy/AdvReac Type Severity Reaction Status Date / Time hydrocodone Allergy Intermediate JUST ABOUT Verified 09/18/22 09:41 PASSED OUT, CLAMMY codeine Allergy Mild Sweating Verified 09/18/22 09:41 Sulfa (Sulfonamide Allergy Unknown Unknown Verified 09/18/22 09:41 Antibiotics) Review of Systems Review of Systems: Pertinent positives per HPI. Patient denies any fever, chills, rash, headache, visual changes, dizziness, cough, runny nose, sore throat, shortness of breath, chest pain, palpitations, nausea, vomiting, diarrhea, constipation, abdominal pain, or any urinary issues. PMFSH Past Medical History Medical History Chronic gastroesophageal reflux disease Depression Diverticulitis Essential hypertension Surgical History Surgical History History of cholecystectomy S/P partial hysterectomy Family History Family History Sibling Diabetes mellitus Hypertension Cerebrovascular accident Mother Family history of malignant neoplasm Thyroid disorder Father Carcinoma of colon Alcoholism Other Cancer Sibling Diabetes mellitus Hypertension Heart disease Sibling Hypertension Cerebrovascular accident Thyroid disorder Social History Social History Smoking status: Never smoker Alcohol intake: never Substance use: never Substance use type: does not use Living arrangements: with family Occupation/Education: retired Gender identity (if verbalized by the patient): Female Sexual Orientation (if Verbalized by the Patient): Straight or Heterosexual Spiritual care concerns: No Comments At the time of my signature, I reviewed and agree with the nursing past medical, surgical, social, and family history. There is no relevant family history pertinent to the patient complaint. Exam Narrative: General: Well-developed, well nourished, in no apparent distress Head: Normocephalic, atraumatic. Cardio: Regular rate and rhythm, s1 and s2 normal, no murmur appreciated. Resp: Clear to auscultation bilaterally, no rhonchi, rales, wheezing or rubs. Integumentary: [place], warm, and dry, 1 cm laceration to the right lateral thumb and a 0.5 puncture wound/laceration to the right lateral palm. Bleeding controlled Course Course Emergency Course: Portions of this record may have been created with voice recognition software. Level of Care: Express Care Visit Vital Signs Vital signs: Vital signs reviewed Procedures Laceration Laceration 1: Date: 03/07/23 Side (If applicable): right Size (cm): 1 (0.5) Description: linear and irregular Depth: simple, single layer Pre-repair: wound explored, irrigated and irrigated extensively ====== Skin Level ====== Skin layer closed with: steri strips ====== Subcutaneous Layer ====== ======
[2023-03-07 19:13] VITALS: BP 148/88; PULSE 107; RESP 16; TEMP 36.3; O2SAT 98
== END 2023-03-07 20:06 | disposition home or self-care (01) ==
PROVIDERS: Emergency Provider Nurse Practitioner Family; PCP Family Medicine
DX: S61.011A Laceration without foreign body of right thumb without damage to nail, initial encounter (principal); S61.431A Puncture wound without foreign body of right hand, initial encounter; W54.0XXA Bitten by dog, initial encounter; K21.9 Gastro-esophageal reflux disease without esophagitis; I10 Essential (primary) hypertension; Z90.711 Acquired absence of uterus with remaining cervical stump
CPT/HCPCS: 99213; G0463

== ENCOUNTER 2023-03-27 10:32 | Outpatient (CLI) | payer MEDICARE, SELFPAY ==
[2023-03-27 10:51] LABS: Basophils Percent Auto 0.7 % (0.2-1.2); Eosinophils Absolute Auto 0.4 K/mm3 (0-0.3); Eosinophils Percent Auto 7.2 % (0-4.4); Hematocrit 35.2 % (37.0-47.0); Hemoglobin 11.3 g/dL (12.0-15.0); Immature Granulocyte Absolute 0.03 K/mm3 (0.00-0.031); Immature Granulocyte Percent A 0.5 % (0-0.5); Lymphocytes Absolute Auto 1.44 K/mm3 (0.9-3.2); Lymphocytes Percent Auto 25.8 % (18.3-44.2); Mean Corpuscular HGB Conc 32.1 g/dl (32-36); Mean Corpuscular Hemoglobin 29.9 pg (26-34); Mean Corpuscular Volume 93.1 fl (80-100); Mean Platelet Volume 10.4 fl (7.4-10.4); Monocytes Absolute Auto 0.4 K/mm3 (0.1-0.6); Monocytes Percent Auto 7.2 % (2.6-8.5); Neutrophils Absolute Auto 3.3 K/mm3 (1.3-6.7); Neutrophils Percent Auto 58.6 % (45.5-73.1); Platelet Count Result 227 k/mm3 (150-375); Red Blood Count 3.78 M/mm3 (4.2-5.4); Red Cell Distribution Width 12.7 % (11.5-14.5); White Blood Count 5.6 K/mm3 (4.5-10.0)
[2023-03-27 11:00] LABS: Hemoglobin A1C 5.4 % (<5.7)
[2023-03-27 11:02] LABS: Alanine Aminotransferase 23 U/L (6-35); Albumin Level 4.2 g/dL (3.5-5.1); Alkaline Phosphatase 89 U/L (38-126); Anion Gap 3 mmol/L (8-16); Aspartate Amino Transferase 28 U/L (14-36); Bilirubin,Total 0.6 mg/dL (0.2-1.3); Blood Urea Nitrogen 9 mg/dL (7-17); Calcium 8.6 mg/dL (8.4-10.2); Carbon Dioxide 28 mmol/L (22-30); Chloride 105 mmol/L (98-107); Cholesterol 227 mg/dL (0-200); Estimated Glomerular Filt Rate > 60; Glucose 105 mg/dL (65-110); HDL Direct 62 mg/dL; Potassium 4.2 mmol/L (3.4-5.0); Sodium 136 mmol/L (137-145); Triglycerides 177 mg/dL (<150)
[2023-03-27 11:11] LABS: Appearance Urine Clear (Clear); Bilirubin Urine Negative (Negative); Blood Urine Negative (Negative); Color Urine Yellow (Yellow); Glucose Urine UA Negative (Negative); Ketones Urine Negative (Negative); Leukocyte Esterase Ur Negative LEU/UL (NEGATIVE); Nitrate Urine Negative (Negative); Protein Urine Negative (Negative); Specific Grav Ur 1.016 (1.001-1.035)
[2023-03-27 11:12] LABS: LDL Cholesterol Direct 100 mg/dL
[2023-03-27 11:36] LABS: Add Urine Microscopic? NO
== END 2023-03-27 10:33 | disposition home or self-care (01) ==
LOC: ANHLAB 10:35
PROVIDERS: PCP Family Medicine; Visit Provider Physician Assistant
DX: R73.01 Impaired fasting glucose (principal); D64.9 Anemia, unspecified; I10 Essential (primary) hypertension
CPT/HCPCS: 36415; 80053; 80061; 81003; 83036; 84443; 85025

== ENCOUNTER 2023-07-06 14:56 | Emergency (ER) | payer MEDICARE, SELFPAY ==
--- NOTE | ~2023-07-06 | XR_ITS ---
EXAMINATION: XR humerus LT DATE: 07/06/2023 15:26 INDICATION: Proximal left humerus pain. Fall. TECHNIQUE: 2 views of left humerus on 3 radiographs were obtained. COMPARISON: None. FINDINGS: There is a displaced avulsion fracture of greater tuberosity of proximal left humerus. Ther e is moderate osteoarthritis of glenohumeral joint and severe osteoarthritis of acromioclavicular jeovanny nt. IMPRESSION: 1. Displaced avulsion fracture of greater tuberosity of proximal left humerus. 2. Polyarticular osteoarthritis. Reviewed, dictated and finalized at location E. ERCIAL GREEN BUILDING ARCHITECT
[2023-07-06 15:16] VITALS: BP 135/86; PULSE 68; RESP 16; TEMP 36.3; O2SAT 99
--- NOTE | 2023-07-06 15:44 | ED.UPPEXIN ---
HPI - Extremity Injury (Upper) General Chief Complaint: Extremity Injury, Upper Stated Complaint: Injured arm Time Seen by Provider: 07/06/23 15:44 Source: patient Mode of arrival: ambulatory Limitations: no limitations History of Present Illness HPI narrative: 68-year-old female presents with complaint of left shoulder pain. Patient reports that she slipped and fell on ice. Fell backwards on to but and put left arm out to catch herself. Did not hit head, no LOC. Was able to get up on her own. Ambulatory with steady gait, here with her . All systems reviewed and negative except as noted above. Related Data Home Medications Medication Instructions Recorded Confirmed flaxseed oil 1,000 mg capsule 1,000 mg PO DAILY 04/29/19 07/06/23 multivitamin 1 tablet PO DAILY 04/29/19 07/06/23 Allergies Allergy/AdvReac Type Severity Reaction Status Date / Time hydrocodone Allergy Intermediate JUST ABOUT Verified 07/06/23 14:59 PASSED OUT, CLAMMY codeine Allergy Mild Sweating Verified 07/06/23 14:59 Sulfa (Sulfonamide Allergy Unknown Unknown Verified 07/06/23 14:59 Antibiotics) Review of Systems Review of Systems: CONSTITUTIONAL: Denies fever, chills, or sweats. EYES: Denies visual changes, redness, or discharge. ENT: Denies rhinorrhea, congestion, sore throat, or otalgia. CARDIOVASCULAR: Denies chest pain, palpitations, or edema. RESPIRATORY: Denies cough or dyspnea. GASTROINTESTINAL: Denies abdominal pain, nausea, vomiting, or diarrhea. GENITOURINARY: Denies dysuria or hematuria. SKIN: Denies rash or itching. MUSCULOSKELETAL: Denies back pain or myalgia. Reports pain to left shoulder. NEUROLOGIC: Denies headache, numbness, or weakness. PSYCHIATRIC: Denies anxiety or depression. All other systems reviewed are negative, except as documented in HPI. FORMERLY [facility] Past Medical History Medical History Chronic gastroesophageal reflux disease Depression Diverticulitis Essential hypertension Surgical History Surgical History History of cholecystectomy S/P partial hysterectomy Family History Family History Sibling Diabetes mellitus Hypertension Cerebrovascular accident Mother Family history of malignant neoplasm Thyroid disorder Father Carcinoma of colon Alcoholism Other Cancer Sibling Diabetes mellitus Hypertension Heart disease Sibling Hypertension Cerebrovascular accident Thyroid disorder Social History Social History Smoking status: Never smoker Alcohol intake: never Substance use: never Substance use type: does not use Living arrangements: with family Occupation/Education: retired Gender identity (if verbalized by the patient): Female Sexual Orientation (if Verbalized by the Patient): Straight or Heterosexual Spiritual care concerns: No Comments At time of signature, agree with nursing past medical, surgical, social and family history. There is no relevant family history pertinent to the presenting complaint. Exam Narrative: GENERAL: This is a well-nourished, well-developed patient, in no apparent distress. HEAD: normocephalic, atraumatic. EYES: PERRL. Sclera clear/white. Vision is grossly intact. EARS: External ears normal NOSE: External nose normal NECK: Neck supple, non-tender without lymphadenopathy, masses or thyromegaly. CARDIOVASCULAR: Regular rate and rhythm without murmurs, gallops, or rubs. RESPIRATORY: Clear to auscultation. Breath sounds equal bilaterally. No wheezes, rales, or rhonchi. SKIN: warm, Dry, intact with no suspicious lesions or rash, good texture and turgor. NEURO: awake, alert, and oriented to person, place and time. There were no obvious focal neurologic abnormalities. EXTREMITIES: tenderness to proximal hu
== END 2023-07-06 15:52 | disposition home or self-care (01) ==
PROVIDERS: Emergency Provider Nurse Practitioner Family; PCP Family Medicine
DX: S42.252A Displaced fracture of greater tuberosity of left humerus, initial encounter for closed fracture (principal); W00.0XXA Fall on same level due to ice and snow, initial encounter; K21.9 Gastro-esophageal reflux disease without esophagitis; I10 Essential (primary) hypertension; Z90.711 Acquired absence of uterus with remaining cervical stump
CPT/HCPCS: 73060; 99214; A4565; G0463

== ENCOUNTER 2023-10-03 07:54 | Outpatient (CLI) | payer MEDICARE, SELFPAY ==
[2023-10-03 08:34] LABS: Alanine Aminotransferase 22 U/L (6-35); Alkaline Phosphatase 103 U/L (38-126); Anion Gap 9 mmol/L (4-12); Aspartate Amino Transferase 26 U/L (14-36); Bilirubin,Total 0.6 mg/dL (0.2-1.3); Blood Urea Nitrogen 15 mg/dL (7-17); Calcium 9.4 mg/dL (8.4-10.2); Carbon Dioxide 24 mmol/L (22-30); Chloride 106 mmol/L (98-107); Cholesterol 147 mg/dL (0-200); Estimated Glomerular Filt Rate > 60; Glucose 133 mg/dL (65-110); HDL Direct 82 mg/dL; Potassium 4.7 mmol/L (3.4-5.0); Sodium 139 mmol/L (137-145); Triglycerides 55 mg/dL (<150)
[2023-10-03 08:45] LABS: LDL Cholesterol Direct 56 mg/dL
== END 2023-10-03 07:55 | disposition home or self-care (01) ==
LOC: ANHLAB 07:55
PROVIDERS: PCP Family Medicine; Visit Provider Physician Assistant
DX: E66.9 Obesity, unspecified (principal); E78.5 Hyperlipidemia, unspecified; I10 Essential (primary) hypertension
CPT/HCPCS: 36415; 80053; 80061

== ENCOUNTER 2023-11-06 10:30 | Outpatient (CLI) | payer MEDICARE, SELFPAY ==
--- NOTE | ~2023-11-06 | US_ITS ---
EXAMINATION: US venous doppler LE DATE: 11/06/2023 11:07 INDICATION: Left lower limb pain. TECHNIQUE: Grayscale ultrasound images without and with compression and Doppler ultrasound images of the bilateral lower extremity veins were obtained. COMPARISON: None. FINDINGS: The visualized portions of right common femoral vein, profunda (deep) femoral vein, femoral vein, pop liteal vein, peroneal veins, posterior tibial veins, and greater saphenous vein outflow are patent. The visualized portions of left common femoral vein, profunda femoral vein, femoral vein, popliteal v ein, posterior tibial veins, and greater saphenous vein outflow are patent. There is thrombus in a le ft peroneal vein. IMPRESSION: 1. Deep vein thrombosis involving a left peroneal vein. Reviewed, dictated and finalized at location A.
== END 2023-11-06 10:31 | disposition home or self-care (01) ==
PROVIDERS: PCP Family Medicine; Visit Provider Physician Assistant Medical
DX: M79.89 Other specified soft tissue disorders (principal); I82.452 Acute embolism and thrombosis of left peroneal vein
CPT/HCPCS: 93970

== ENCOUNTER 2023-11-23 07:57 | Outpatient (CLI) | payer MEDICARE, SELFPAY ==
--- NOTE | ~2023-11-23 | MR_ITS ---
MRI of the left shoulder Technique: Axial proton-density fat-sat images, coronal proton density fat-sat and T2 fat-sat images, and sagittal T1-weighted and T2 fat-sat images were acquired. Clinical History: Injury Findings: There is moderate to severe AC joint degenerative change with bony productive change of the distal clavicle, and small subacromial spur. Coracoclavicular, coracoacromial, and coracohumeral lig aments appear intact. There are complete, full-thickness tears involving the entirety of the supraspinatus and infraspinatu s tendons. Fluid-filled gap measures approximately 3.9 x 3.9 cm in extent. Subscapularis tendon is in tact with moderate tendinosis. Tendon of long head of the biceps is probably ruptured proximally and retracted into the bicipital groove. There is degenerative attenuation of the superior labrum. Inferior glenohumeral ligament demonstrates thickening and increased signal. No significant degenerat antoine change of the glenohumeral joint. Probable fatty infiltration of the infraspinatus muscle belly. Probable minimal atrophy of the supraspinatus muscle belly. Impression: Complete, full-thickness tears of the supraspinatus and infraspinatus tendons, as above. Associated i nfraspinatus fatty atrophy. Probable minimal atrophic change of the supraspinatus muscle. Probable complete rupture of the proximal long head biceps tendon with retraction to the bicipital gr oove. Degenerative attenuation of the superior labrum. AC joint degenerative change, as above. Thickening and increased signal of the inferior glenohumeral ligament can reflect adhesive capsulitis . Reviewed, dictated and finalized at [facility]. Impression: Complete, full-thickness tears of the supraspinatus and infraspinatus tendons, as above. Associated infraspinatus fatty atrophy. Probable minimal atrophic hoang nge of the supraspinatus muscle. Probable complete rupture of the proximal long head biceps tendon with retracti on to the bicipital groove. Degenerative attenuation of the superior labrum. AC joint degenerative change, as above. Thickening and increased signal of the inferior glenohumeral ligament can refle ct adhesive capsulitis.
== END 2023-11-23 07:58 ==
LOC: MICIMG 07:58
PROVIDERS: PCP Family Medicine; Visit Provider Orthopaedic Surgery
DX: S49.92XA Unspecified injury of left shoulder and upper arm, initial encounter (principal); X58.XXXA Exposure to other specified factors, initial encounter; M75.122 Complete rotator cuff tear or rupture of left shoulder, not specified as traumatic; M19.012 Primary osteoarthritis, left shoulder
CPT/HCPCS: 73221

== ENCOUNTER 2023-12-21 14:02 | Outpatient (CLI) | payer MEDICARE, SELFPAY ==
--- NOTE | ~2023-12-21 | DEXA_ITS ---
Bone Density Report Name: ZAINAB BUSBY Age: 68 Sex: Female Ethnicity: White Date of : 1955 Indication: postmenopausal; screening for osteoporosis; parental hip fracture; height loss; hysterectomy; Referring Provider: LACI, ERNST Santos Study: Bone densitometry was performed. Exam Date: December 21, 2023 Accession number: [id number] Bone Density: Region BMD T-score Z-score Classification AP Spine(L1-L4) 1.285 2.2 4.2 Normal Femoral Neck (Left) 0.714 -1.2 0.5 Osteopenia Total Hip (Left) 0.838 -0.9 0.6 Normal Femoral Neck (Right) 0.759 -0.8 0.9 Normal Total Hip (Right) 0.867 -0.6 0.8 Normal Total Hip Mean 0.852 -0.8 0.7 Normal World Health Organization criteria for BMD impression classify patients as: Normal (T-score at or above -1.0), Osteopenia (T-score between -1.0 and -2.5), or Osteoporosis (T-score at or below -2.5). 10-year Fracture Risk(1): Major Osteoporotic Fracture 13% Hip Fracture 1.3% Reported Risk Factors: [place] (), Neck BMD=0.714, BMI=45.9, parental fracture (1) FRAX(R) Version 3.08. Fracture probability calculated for an untreated patient. Fracture probability may be lower if the patient has received treatment. Clinical Information Provided by Patient: Parent has had a hip fracture Has used the following medications: Vitamin D Has the following medical conditions: Hysterectomy Patient maximum height was 66.75 Menopause Age: 48 No regular weight bearing exercise Drinks caffeinated beverages Onset of menses at age 11 Number of children 1 Impression: The patient has low bone mass, based on the Left Femoral Neck T-score. The patient has an estimated ten-year risk of hip fracture of 1.3% and an estimated ten-year risk of major fracture of 13%, based on the WHO FRAX algorithm. The patient has risk factors, including: parental hip fracture. Discussion: BONE DENSITY IS LOW AT ONE OR MORE SKELETAL SITES. This patient's lowest T-score is low at one or more skeletal sites. It meets the World Health Organization's (WHO) criteria for ?low bone mass? (T-score between -1.0 and -2.5). The patient's 10-year risk of fracture as calculated by FRAX is less than the threshold where pharmacological therapy is recommended by the National Osteoporosis Foundation (NOF). However, all treatment decisions require clinical judgment and consideration of individual patient factors, including patient preferences, comorbidities, previous drug use, risk factors not captured in the FRAX model (e.g., frailty, falls, vitamin D deficiency, increased bone turnover, interval significant decline in bone density) and possible under or overestimation of fracture risk by FRAX. The patient should follow a healthful lifestyle (good nutrition with adequate calcium and vitamin D, and appropria
--- NOTE | ~2023-12-21 | MM_ITS ---
EXAMINATION: MM screening aliyah BI w abbi HISTORY: Screening TECHNIQUE: Craniocaudal and mediolateral oblique 3-D tomosynthesis images were obtained and synthetic 2-D images were generated. CAD analysis was submitted and interpreted. COMPARISON: Comparison to multiple prior studies sequentially, with oldest reviewed study dated 03/13. BREAST PARENCHYMAL COMPOSITION: Not dense: There are scattered areas of fibroglandular density. FINDINGS: There is no evidence of suspicious mass, calcification, or architectural distortion to sugg est malignancy in either breast. There has been no suspicious interval change. IMPRESSION: 1. No mammographic evidence of malignancy. 2. Recommend routine screening mammography in one year. BI-RADS Category 1: Negative Reviewed, dictated and finalized at location B.
== END 2023-12-21 14:03 | disposition home or self-care (01) ==
LOC: ANHIMG 14:09
PROVIDERS: PCP Family Medicine; Visit Provider Physician Assistant
DX: Z12.31 Encounter for screening mammogram for malignant neoplasm of breast (principal); M85.89 Other specified disorders of bone density and structure, multiple sites
CPT/HCPCS: 77063; 77067; 77080

== ENCOUNTER 2024-02-26 15:01 | Outpatient (CLI) | payer MEDICARE, SELFPAY ==
[2024-03-15 10:30] LABS: Factor V Leiden Mutation Negative
== END 2024-02-26 15:02 | disposition home or self-care (01) ==
LOC: ANHLAB 15:05
PROVIDERS: PCP Family Medicine; Visit Provider Physician Assistant Medical
DX: I82.4Z2 Acute embolism and thrombosis of unspecified deep veins of left distal lower extremity (principal); Z82.49 Family history of ischemic heart disease and other diseases of the circulatory system
CPT/HCPCS: 36415; 81240; 81241; 85301; 85303; 85306

== ENCOUNTER 2024-03-07 12:35 | Outpatient (CLI) | payer MEDICARE, SELFPAY ==
--- NOTE | ~2024-03-07 | US_ITS ---
LEFT LOWER EXTREMITY VENOUS ULTRASOUND Ordering provider: Roshni Ly PA-C History: . I82.4Z2 - Acute embolism and thrombosis of unspecified de... . Comparison: None. FINDINGS: --COMMON FEMORAL: Patent and free of thrombus. Normal compressibility, phasic flow and augmentation. --PROXIMAL SUPERFICIAL FEMORAL: Patent and free of thrombus. Normal compressibility, phasic flow and augmentation. --DISTAL SUPERFICIAL FEMORAL: Patent and free of thrombus. Normal compressibility, phasic flow and au gmentation. --POPLITEAL: Patent and free of thrombus. Normal compressibility, phasic flow and augmentation. --POSTERIOR TIBIAL: Patent and free of thrombus. Normal compressibility, phasic flow and augmentation . IMPRESSION: Negative left lower extremity venous US. No deep vein thrombosis. Reviewed, dictated and finalized at location A.
== END 2024-03-07 12:36 | disposition home or self-care (01) ==
PROVIDERS: PCP Family Medicine; Visit Provider Physician Assistant Medical
DX: I82.4Z2 Acute embolism and thrombosis of unspecified deep veins of left distal lower extremity (principal); M79.662 Pain in left lower leg
CPT/HCPCS: 93971

== ENCOUNTER 2024-03-21 13:58 | Outpatient (CLI) | payer MEDICARE, SELFPAY ==
[2024-03-25 22:19] LABS: Anti-Thrombin III Antigen 87 % normal (80-120)
== END 2024-03-21 13:59 | disposition home or self-care (01) ==
PROVIDERS: PCP Family Medicine; Visit Provider Physician Assistant Medical
DX: I82.4Z2 Acute embolism and thrombosis of unspecified deep veins of left distal lower extremity (principal); Z82.49 Family history of ischemic heart disease and other diseases of the circulatory system
CPT/HCPCS: 36415; 85301; 85303; 85306

== ENCOUNTER 2024-05-06 13:08 | Outpatient (CLI) | payer MEDICARE, SELFPAY ==
--- NOTE | ~2024-05-06 | XR_ITS ---
EXAMINATION: XR knee LT 3V DATE: 05/06/2024 13:24 INDICATION: Chronic left knee pain. TECHNIQUE: 3 views of left knee including standing views were obtained. COMPARISON: Left knee radiographs 08/11/2015 FINDINGS: Bone alignment is normal. No fracture. There is moderate osteoarthritis of medial and neal lofemoral compartments and mild osteoarthritis of lateral compartment. No knee joint effusion. IMPRESSION: 1. Moderate left knee osteoarthritis. Reviewed, dictated and finalized at location A. ICATIONS SYSTEM ANALYST
--- NOTE | ~2024-05-06 | XR_ITS ---
EXAMINATION: XR knee RT 3V DATE: 05/06/2024 13:24 INDICATION: Right knee pain. TECHNIQUE: 3 views of right knee including standing views were obtained. COMPARISON: None. FINDINGS: Alignment is normal. No fracture. There is mild tricompartmental osteoarthritis. No knee palomo int effusion. IMPRESSION: 1. Mild right knee osteoarthritis. Reviewed, dictated and finalized at location A. ECTOR PLUG SEAM
== END 2024-05-06 13:09 | disposition home or self-care (01) ==
LOC: MICIMG 13:08
PROVIDERS: PCP Family Medicine; Visit Provider Physician Assistant Medical
DX: M17.0 Bilateral primary osteoarthritis of knee (principal)
CPT/HCPCS: 73562

== ENCOUNTER 2024-09-14 11:28 | Outpatient (CLI) | payer MEDICARE, SELFPAY ==
[2024-09-14 12:08] LABS: Alanine Aminotransferase 27 U/L (6-35); Albumin Level 4.5 g/dL (3.5-5.1); Alkaline Phosphatase 106 U/L (38-126); Anion Gap 8 mmol/L (4-12); Aspartate Amino Transferase 27 U/L (14-36); Bilirubin,Total 0.6 mg/dL (0.2-1.3); Blood Urea Nitrogen 16 mg/dL (7-17); Calcium 9.2 mg/dL (8.4-10.2); Carbon Dioxide 29 mmol/L (22-30); Chloride 103 mmol/L (98-107); Cholesterol 133 mg/dL (0-200); Estimated Glomerular Filt Rate > 60; Glucose 110 mg/dL (65-110); HDL Direct 63 mg/dL; Potassium 4.6 mmol/L (3.4-5.0); Sodium 140 mmol/L (137-145); Triglycerides 114 mg/dL (<150)
[2024-09-14 12:19] LABS: LDL Cholesterol Direct 36 mg/dL
[2024-09-14 12:26] LABS: Hematocrit 36.7 % (37.0-47.0); Hemoglobin 11.9 g/dL (12.0-15.0); Mean Corpuscular HGB Conc 32.4 g/dl (32-36); Mean Corpuscular Hemoglobin 29.5 pg (26-34); Mean Corpuscular Volume 90.8 fl (80-100); Mean Platelet Volume 11.5 fl (7.4-10.4); Platelet Count Result 218 k/mm3 (150-375); Red Blood Count 4.04 M/mm3 (4.2-5.4); Red Cell Distribution Width 12.7 % (11.5-14.5); White Blood Count 6.1 K/mm3 (4.5-10.0)
[2024-09-14 12:31] LABS: Add Urine Microscopic? NO; Appearance Urine Clear (Clear); Bilirubin Urine Negative (Negative); Blood Urine Negative (Negative); Color Urine Yellow (Yellow); Glucose Urine UA Negative (Negative); Ketones Urine Trace mg/dL (Negative); Leukocyte Esterase Ur Negative LEU/UL (Negative); Nitrate Urine Negative (Negative); Protein Urine Negative (Negative); Specific Grav Ur 1.027 (1.001-1.035); pH Urine 5.5 (5.0-9.0)
[2024-09-14 12:44] LABS: Hemoglobin A1C 6.1 % (<5.7)
--- OUTSIDE RECORDS SUMMARY | 2024-09-14 13:04 | XMS_ITS | Clinical Summary ---
Author Organization [facility] Address [address] [place] [address] Care Team Providers Care Ruffler Name Role Phone Hussein Cárdenas MD Primary Care Provider [phone] Allergies Active Allergy Reactions Criticality Noted Date Comments Hydrocodone Dizziness Low 04/22/2022 Lightheaded, stomach burning, feels like going to pass out Sulfa (Sulfonamide Antibiotics) Hives High 04/22/2022 Not entirely sure Medications FLUoxetine (PROzac) 40 mg capsule Take 40 mg by mouth daily. 03/06/2022 Active furosemide (LASIX) 20 mg tablet Take 20 mg by mouth daily in the morning. 04/08/2022 Active quinapriL (ACCUPRIL) 20 mg tablet Take 20 mg by mouth daily. 04/09/2022 Active amLODIPine (NORVASC) 5 mg tablet Take 5 mg by mouth daily. 04/09/2022 Active omeprazole (PriLOSEC) 20 mg Capsule, Delayed Release(E.C.) Take 20 mg by mouth daily. 04/09/2022 Active multivitamins with minerals Tablet Take 1 Tablet by mouth daily. Active OTHER Flaxseed oil 1400mg Active aspirin (GAVIN CHEWABLE) 81 mg Tablet, Chewable Take 81 mg by mouth daily. Active cholecalciferol 1,250 mcg (50,000 unit) Capsule Take by mouth. Active Active Problems No known active problems Family History Medical History Relation Name Comments Diabetes Brother 1 Heart Disease Brother 1 Pulmonary embolism Brother 2 No Known Problems Daughter Prostate Cancer Father Heart Disease Mother Leukemia Mother No Known Problems Sister 1 No Known Problems Sister 2 No Known Problems Sister 3 No Known Problems Sister 4 Relation Name Status Comments Brother 1 Alive Brother 2 Daughter Alive Father Mother Sister 1 Alive Sister 2 Alive Sister 3 Alive Sister 4 Alive Social History Tobacco Use Types Packs/Day Years Used Date Smoking Tobacco: Never Smokeless Tobacco: Never Tobacco Cessation:Counseling Given: Not Answered Alcohol Use Standard Drinks/Week Comments Never 0 (1 standard drink = 0.6 oz pur e alcohol) Comments Unknown Sex and Gender Information Value Date Recorded Sex Assigned at Not on file Legal Sex Female 3:25 PM CDT Gender Identity Not on file Sexual Orientation Not on file Last Filed Vital Signs Vital Sign Reading Time Taken Comments Blood Pressure 164/89 05/06/2022 2:10 PM GRIEVANCE AND APPEALS COORDINATOR Pulse 82 05/06/2022 2:10 PM GRIEVANCE AND APPEALS COORDINATOR Temperature 36.6 C (97.8 F) 05/06/2022 2:10 PM GRIEVANCE AND APPEALS COORDINATOR Respiratory Rate 16 05/06/2022 2:10 PM GRIEVANCE AND APPEALS COORDINATOR Oxygen Saturation 100% 05/06/2022 2:10 PM GRIEVANCE AND APPEALS COORDINATOR Inhaled Oxygen Concentration - - Weight 113.9 kg (251 lb 1.6 oz) 022 10:35 AM GRIEVANCE AND APPEALS COORDINATOR Height 165.1 cm (5' 5 ) 04/22/2022 10:3 5 AM GRIEVANCE AND APPEALS COORDINATOR Body Mass Index 41.79 04/22/2022 10:35 AM GRIEVANCE AND APPEALS COORDINATOR Plan of Treatment Health Maintenance Due Date Last Done Comments DTAP/TDAP/TD VACCINES (1 - Tdap) 1974 BREAST CANCER SCREENING 1995 COLORECTAL SCREENING 2000 Colorectal Cancer Screening 2000 FIT-DNA Q 3 years 2000 FIT/FOBT Q 1 year 2000 Flex Sig/CT Colonography Q 5 years 2000 PNEUMOCOCCAL VACCINE 50+ YEARS (1 of 1 - PCV) 04/11/20 05 ZOSTER VACCINE (1 of 2) 2005 OSTEOPOROSIS SCREENING 2020 INFLUENZA VACCINE (#1) 2024 RSV VACCINE (60+ or ) (1 - 1-dose 75+ series) 2030 Care Teams Ruffler Relationship Specialty Start Date End Date Hussein Cárdenas MD [address] [place] [id number] PCP - General Family Practice 04/22/22
--- OUTSIDE RECORDS SUMMARY | 2024-09-14 13:04 | XMS_ITS | Clinical Summary ---
Author Organization [facility] Address [facility] [place] [address] Care Team Providers Care Material Yard Clerk Name Role Phone Hussein Cárdenas MD Primary Care Provider Allergies Active Allergy Reactions Criticality Noted Date Comments Hydrocodone Dizziness,Stomach upset Low 04/22/2022 Lightheaded, stomach burning, feels like going to pass out Lavender Rash,Stomach upset,Swelling Medium 08/22/2024 Sulfa (Sulfonamide Antibiotics) Hives High 04/22/2022 Not entirely sure Medications atorvastatin 20 mg/5 mL (4 mg/mL) suspension Active calcium citrate-vitamin D3 (CITRACAL+D) 315 mg-5 mcg (200 unit) per tablet Active ferrous sulfate (iron) 325 mg (65 mg of elemental iron) tablet Active lisinopriL (PRINIVIL,ZESTR IL) 40 mg tablet Active furosemide (LASIX) 20 mg tablet Take 1 tablet (20 mg total) by mouth every morning Active cholecalciferol (VITAMIN D-3) 50,000 unit capsule Take by mouth Active omeprazole (PriLOSEC) 20 mg capsule Take 1 capsule (20 mg total) by mouth daily Active Xarelto 20 mg tablet TAKE 1 TABLET BY MOUTH DAILY WITH THE EVENING MEAL 08/15/2024 Active atorvastatin (LIPITOR) 20 mg tablet Take 1 tablet (20 mg total) by mouth nightly at bedtime 05/27/2024 Active Active Problems No known active problems Encounters Date Type Department Care Team Description 09/08/2024 Telephone [facility] Orthopaedic Surgery [address] [place] [address] Medical Office Building [address] [place] [address] Arsen Beck MD 09/08/2024 Orders Only [facility] [address] [facility] Medical Office Building [address] [place] [address] Arsen Beck MD Low back pain with bilateral sciatica, unspecified back pain laterality, unspecified chronicity (Primary Dx) 09/05/2024 Results Follow-Up [facility] [address] [facility] 6th [place] [address] [place] [address] Arsen Beck MD 09/01/2024 4:56 PM CDT - 09/01/2024 11:59 PM CDT Hospital Encounter [facility] [address] [place] [address] Arsen Beck MD Low back pain with bilateral sciatica, unspecified back pain laterality, unspecified chronicity Discharge Disposition: Discharge to home or self care 08/22/2024 2:43 PM CDT - 08/22/2024 11:59 PM CDT Hospital Encounter [facility] [address] [place] [address] Arsen Beck MD Low back pain, unspecified back pain laterality, unspecified chronicity, unspecified whether sciatica present Discharge Disposition: Discharge to home or self care 08/22/2024 2:00 PM CDT Office Visit [facility] [address] [place] [address] [facility] 6th [place] [address] [place] [address] Arsen Beck MD Low back pain with bilateral sciatica, unspecified back pain laterality, unspecified chronicity (Primary Dx); Follow-up exam; Low back pain, unspecified back pain laterality, unspecified chronicity, unspecified whether sciatica present from Last 3 Months Social History Tobacco Use Types Packs/Day Years Used Date Smoking Tobacco: Never Tobacco Cessation:Counseling Given: Not Answered Comments Unknown Sex and Gender Information Value Date Recorded Sex Assigned at Not on file Legal Sex Female 7:05 PM CONE SEWER Gender Identity Not on file Sexual Orientation Not on file Obstetrics History Last Filed Vital Signs Vital Sign Reading Time Taken Comments Blood Pressure 102/58 01/03/2015 12:43 PM CDT Pulse 58 01/03/2015 12:43 PM CDT Temperature 36.8 C (98.2 F) 01/03/2015 12:43 PM CDT Respiratory Rate - - Oxygen Saturation 99% 01/03/2015 12:43 PM CDT Inhaled Oxygen Concentration - - Weight 109.3 kg (241 lb) 09/01/2024 5:06 PM CDT Height 165.1 cm (5' 5 ) 09/01/2024 5:06 PM CDT Body Mass Index 40.1 09/01/2024 5:06 PM CDT Plan of Treatment Health Maintenance Due Date Last Done Comments Breast Cancer Screening-Mammogram 1955 Colon Cancer Screening-Colonoscopy 1955 Depression Screening 1955 Fall Risk Assessment 1955 Hepatitis C Screening 1955 Osteoporosis Screening-Bone Density Scan 1955 Hepatitis B Screening 1973 Pneumococcal vaccine 65+ (1 of 1 - PCV) 2005 Well Visit 65+ 2020 Covid-19 Vaccine (2023-2 5 season) 2024 02/14/2024, 03/07/2023, 10/08/2022, Additional history exists DTaP/Tdap/Td Vaccine (3 - Td or Tdap) 12/11/2031 12/10/2021, 12/28/2016 Zoster Vaccine Completed 06/01/2022, 03/21/2022 Influenza Vaccine Completed 02/14/2024, , 03/14/2022, Additional history exists Procedures Procedure Name Priority Date/Time Associated Diagnosis Comments MRI LUMBAR SPINE WO CONTRAST Schedule Routine, Read Routine (OP Routine) 09/01/2024 6:12 PM CDT Low back pain with bilateral sciatica, unspecified back pain laterality, unspecified chronicity XR SPINE LUMBAR COMPLETE 4 OR MORE VIEWS Schedule Routine, Read Routine (OP Routine) 08/22/2024 2:51 PM CDT Low back pain, unspecified back pain laterality, unspecified chronicity, unspecified whether sciatica present from Last 3 Months Results * MRI Lumbar Spine WO Contrast (09/01/2024 6:12 PM CDT) Anatomical Region Laterality Modality Spine N/A Magnetic Resonan ce 09/02/2024 12:0 2 PM CDT Impressions 09/02/2024 10:14 PM CDT 1. Advanced degenerative changes of the lumbar spine with severe spinal canal stenosis from L2-L3 to L4-L5 levels, worst at L3-L4. No high-grade neural foraminal stenosis. 2. Severe degenerative disc disease and Modic type endplate changes at multiple levels. Dictated by: Titus Coates D.O. The radiology attending physician has personally reviewed this study, and had reviewed and/or edited this written report and agrees with it. Electronically signed by: Yissel Mcduffie MD, PhD Narrative 09/02/2024 10:14 PM CDT EXAMINATION: Magnetic resonance imaging (MRI) of the lumbar spine without contrast HISTORY: 69 years-old Female with LBP/BILAT LET PAIN/EVAL FOR STENOSIS. TECHNIQUE: Multiplanar multi-weighted MRI of the lumbar spine was performed without intravenous contrast using the standard protocol. COMPARISON: Radiograph 08/22/2024. FINDINGS: Straightening of usual lumbar lordosis. Mild type I Modic endplate changes are present at L1-L2 and L3-L4, with Modic type II changes noted throughout the lumbar spine. There are no compression fractures. The conus medullaris terminates at the level of L1-L2. The distal spinal cord signal intensity is normal. There is notable redundancy of the cauda equina nerve roots at L4-L5.. Severe degenerative disc desiccation and height loss throughout the lumbar spine. An annular fissure is present at L4-L5 and L5-S1. Limited views of the abdomen and pelvis show no soft tissue abnormality. The aorta is normal in caliber. Moderate paraspinal muscular atrophy. L1-L2: Posterior disc osteophyte complex. There is moderate bilateral facet arthropathy. There is mild right neuroforaminal stenosis. There is moderate spinal canal stenosis. L2-L3: Posterior disc osteophyte complex. There is facet capsular hypertrophy with severe bilateral facet arthropathy. There is mild right neuroforaminal stenosis. There is severe spinal canal stenosis. L3-L4: Posterior disc osteophyte complex. There is facet capsular hypertrophy with severe bilateral facet arthropathy. There is mild bilateral neuroforaminal stenosis. There is severe spinal canal stenosis. L4-L5: Central disc protrusion. There is facet capsular hypertrophy with severe bilateral facet arthropathy. There is mild bilateral neuroforaminal stenosis. There is moderate to severe spinal canal stenosis. L5-S1: Disc bulge. There is moderate bilateral facet arthropathy. There is mild bilateral neuroforaminal stenosis. There is no spinal canal stenosis. Levocurvature of the lumbar spine. Procedure Note Yissel Mcduffie MD PhD - 09/02/2024 EXAMINATION: Magnetic resonance imaging (MRI) of the lumbar spine without contrast HISTORY: 69 years-old Female with LBP/BILAT LET PAIN/EVAL FOR STENOSIS. TECHNIQUE: Multiplanar multi-weighted MRI of the lumbar spine was performed without intravenous contrast using the standard protocol. COMPARISON: Radiograph 08/22/2024. FINDINGS: Straightening of usual lumbar lordosis. Mild type I Modic endplate changes are present at L1-L2 and L3-L4, with Modic type II changes noted throughout the lumbar spine. There are no compression fractures. The conus medullaris terminates at the level of L1-L2. The distal spinal cord signal intensity is normal. There is notable redundancy of the cauda equina nerve roots at L4-L5.. Severe degenerative disc desiccation and height loss throughout the lumbar spine. An annular fissure is present at L4-L5 and L5-S1. Limited views of the abdomen and pelvis show no soft tissue abnormality. The aorta is normal in caliber. Moderate paraspinal muscular atrophy. L1-L2: Posterior disc osteophyte complex. There is moderate bilateral facet arthropathy. There is mild right neuroforaminal stenosis. There is moderate spinal canal stenosis. L2-L3: Posterior disc osteophyte complex. There is facet capsular hypertrophy with severe bilateral facet arthropathy. There is mild right neuroforaminal stenosis. There is severe spinal canal stenosis. L3-L4: Posterior disc osteophyte complex. There is facet capsular hypertrophy with severe bilateral facet arthropathy. There is mild bilateral neuroforaminal stenosis. There is severe spinal canal stenosis. L4-L5: Central disc protrusion. There is facet capsular hypertrophy with severe bilateral facet arthropathy. There is mild bilateral neuroforaminal stenosis. There is moderate to severe spinal canal stenosis. L5-S1: Disc bulge. There is moderate bilateral facet arthropathy. There is mild bilateral neuroforaminal stenosis. There is no spinal canal stenosis. Levocurvature of the lumbar spine. IMPRESSION: 1. Advanced degenerative changes of the lumbar spine with severe spinal canal stenosis from L2-L3 to L4-L5 levels, worst at L3-L4. No high-grade neural foraminal stenosis. 2. Severe degenerative disc disease and Modic type endplate changes at multiple levels. Dictated by: Titus Coates D.O. The radiology attending physician has personally reviewed this study, and had reviewed and/or edited this written report and agrees with it. Electronically signed by: Yissel Mcduffie MD, PhD Arsen Beck MD IMG MRI PROCEDURES Final Re sult * X-ray lumbar spine complete 4+ views (08/22/2024 2:51 PM CDT) Anatomical Region Laterality Modality Spine N/A Computed Radiogr aphy 08/22/2024 4:54 PM CDT Impressions 08/22/2024 5:11 PM CDT 1. Severe degenerative disc disease and moderate facet arthropathy throughout the lumbar spine. Dictated by: José Luis Anderson MD The radiology attending physician has personally reviewed this study, and had reviewed and/or edited this written report and agrees with it. Electronically signed by: Jermaine De Los Santos D.O. Narrative 08/22/2024 5:11 PM CDT EXAMINATION: XR SPINE LUMBAR 4 OR MORE VIEWS HISTORY: Low back pain COMPARISON: None available FINDINGS: 4 radiographs of the lumbar spine are significant for interpretation. There is thoracolumbar long segment levocurvature and lower lumbar dextrocurvature with apex at L3-L4. Straightening of the lumbar lordosis. Partially imaged mild bilateral hip osteoarthritis. Cholecystectomy clips project over the right upper quadrant. Severe multilevel degenerative disease throughout the lumbar spine. Moderate lumbar facet arthropathy. Vertebral body heights are preserved. No abnormal motion with flexion or extension. Procedure Note Jermaine De Los Santos DO - 08/22/2024 EXAMINATION: XR SPINE LUMBAR 4 OR MORE VIEWS HISTORY: Low back pain COMPARISON: None available FINDINGS: 4 radiographs of the lumbar spine are significant for interpretation. There is thoracolumbar long segment levocurvature and lower lumbar dextrocurvature with apex at L3-L4. Straightening of the lumbar lordosis. Partially imaged mild bilateral hip osteoarthritis. Cholecystectomy clips project over the right upper quadrant. Severe multilevel degenerative disease throughout the lumbar spine. Moderate lumbar facet arthropathy. Vertebral body heights are preserved. No abnormal motion with flexion or extension. IMPRESSION: 1. Severe degenerative disc disease and moderate facet arthropathy throughout the lumbar spine. Dictated by: José Luis Anderson MD The radiology attending physician has personally reviewed this study, and had reviewed and/or edited this written report and agrees with it. Electronically signed by: Jermaine De Los Santos D.O. Arsen Beck MD IMG XR PROCEDURES Final Res ult from Last 3 Months Insurance [employer] MEDICARE [facility] [place] [facility] Address: [facility] [id number] [place] [phone] [facility] Care Teams Material Yard Clerk Relationship Specialty Start Date End Date Hussein Cárdenas MD [address] [facility] [address] [place] [address] PCP - General Family Medicine 09/01/24
--- OUTSIDE RECORDS SUMMARY | 2024-09-14 13:04 | XMS_ITS | Referral Summary ---
Author Organization [facility] Address [address] [place] [address] Care Team Providers Care Pest Control Service Sales Agent Name Role Phone Hussein Cárdenas MD Primary Care Provider Encounters Date Type Department Care Team Description 09/08/2024 Telephone [facility] Orthopaedic Surgery [address] [place] [address] [address] [place] [phone] Arsen Beck MD 09/08/2024 Orders Only [facility] Surgery [address] [place] [address] Office Building [address] [place] [phone] Arsen Beck MD Low back pain with bilateral sciatica, unspecified back pain laterality, unspecified chronicity (Primary Dx) 09/05/2024 Results Follow-Up [facility] Surgery [address] [place] [address] [facility] 6th [place] [address] [place] [address] Arsen Beck MD 09/01/2024 4:56 PM CDT - 09/01/2024 11:59 PM CDT Hospital Encounter [facility] [address] [place] [address] Arsen Beck MD Low back pain with bilateral sciatica, unspecified back pain laterality, unspecified chronicity Discharge Disposition: Discharge to home or self care 08/22/2024 2:43 PM CDT - 08/22/2024 11:59 PM CDT Hospital Encounter [facility] [address] [place] [address] Arsen Beck MD Low back pain, unspecified back pain laterality, unspecified chronicity, unspecified whether sciatica present Discharge Disposition: Discharge to home or self care 08/22/2024 2:00 PM CDT Office Visit [facility] Surgery [address] [facility] 6th [place] [address] [place] [address] Arsen Beck MD Low back pain with bilateral sciatica, unspecified back pain laterality, unspecified chronicity (Primary Dx); Follow-up exam; Low back pain, unspecified back pain laterality, unspecified chronicity, unspecified whether sciatica present from Last 3 Months Allergies Active Allergy Reactions Criticality Noted Date [...] Active Active Problems No known active problems Social History Tobacco Use Types Packs/Day Years Used Date Smoking Tobacco: Never Tobacco Cessation:Counseling Given: Not Answered Comments Unknown Sex and Gender Information Value Date Recorded Sex Assigned at Not on file Legal Sex Female 7:05 PM INVESTOR RELATIONS MANAGER Gender Identity Not on file Sexual Orientation [...] 09/01/2024 5:06 PM CDT Plan of Treatment Not on file Procedures Procedure Name Priority Date/Time Associated Diagnosis [...] Yissel Mcduffie MD, PhD Arsen Beck MD IM MRI PROCEDURES Final Re sult * X-ray [...] or extension. Procedure Note Jermaine De Los Santos, - 08/22/2024 EXAMINATION: XR SPINE LUMBAR 4 [...] Res ult from Last 3 Months Insurance AET MEDICARE T MEDICARE Care Teams Pest Control Service Sales Agent Relationship Specialty Start Date End Date Hussein Cárdenas MD [address] [facility] [address] [place] [address] PCP - General Family Medicine 09/01/24
== END 2024-09-14 11:29 | disposition home or self-care (01) ==
LOC: ANHLAB 11:29
PROVIDERS: PCP Family Medicine; Visit Provider Physician Assistant Medical
DX: Z00.00 Encounter for general adult medical examination without abnormal findings (principal); I10 Essential (primary) hypertension; M85.80 Other specified disorders of bone density and structure, unspecified site; E78.5 Hyperlipidemia, unspecified; R73.01 Impaired fasting glucose
CPT/HCPCS: 36415; 80053; 80061; 81003; 83036; 84443; 85027

== ENCOUNTER 2025-04-05 14:22 | Outpatient (CLI) | payer MEDICARE, SELFPAY ==
--- NOTE | ~2025-04-05 | MM_ITS ---
EXAMINATION: MM screening aliyah BI w abbi HISTORY: Screening TECHNIQUE: Craniocaudal and mediolateral oblique 3-D tomosynthesis images were obtained and synthetic 2-D images were generated. CAD analysis was submitted and interpreted. COMPARISON: 03/13/2017 BREAST PARENCHYMAL COMPOSITION: Not Dense: The breasts are almost entirely fatty. FINDINGS: There is no evidence of suspicious mass, calcification, or architectural distortion to suggest malignancy in either breast. There has been no suspicious interval change. IMPRESSION: 1. No mammographic evidence of malignancy. 2. Recommend routine screening mammography in one year. BI-RADS Category 1: Negative Reviewed, dictated and finalized at location O.
--- OUTSIDE RECORDS SUMMARY | 2025-04-05 18:31 | XMS_ITS | Clinical Summary ---
Author Organization [facility] Address [address] [place] [address] Care Team Providers Care Hospital Cna Name Role Phone Hussein Cárdenas MD Primary Care Provider [phone] Allergies Active Allergy Reactions Criticality Noted Date [...] Comments Blood Pressure 164/89 05/06/2022 2:10 PM GEOPHYSICAL MANAGER Pulse 82 05/06/2022 2:10 PM GEOPHYSICAL MANAGER Temperature 36.6 C (97.8 F) 05/06/2022 2:10 PM GEOPHYSICAL MANAGER Respiratory Rate 16 05/06/2022 2:10 PM GEOPHYSICAL MANAGER Oxygen Saturation 100% 05/06/2022 2:10 PM GEOPHYSICAL MANAGER Inhaled Oxygen Concentration - - Weight 113.9 kg (251 lb 1.6 oz) 022 10:35 AM GEOPHYSICAL MANAGER Height 165.1 cm (5' 5) 04/22/2022 10:3 5 AM GEOPHYSICAL MANAGER Body Mass Index 41.79 04/22/2022 10:35 AM GEOPHYSICAL MANAGER Plan of Treatment Health Maintenance Due Date [...] 2005 OSTEOPOROSIS SCREENING 2020 INFLUENZA VACCINE (#1) 2025 RSV VACCINE (60+ or ) (1 - 1-dose 75+ series) 2030 Care Teams Hospital Cna Relationship Specialty Start Date End Date Hussein Cárdenas MD [address] [place] [phone] PCP - General Family Practice 04/22/22
--- OUTSIDE RECORDS SUMMARY | 2025-04-05 18:31 | XMS_ITS | Patient Health Record ---
Author Organization [facility] Address [address] [place], [place] [id number] Care Team Providers Care Contractor General Building Name Role Phone VEGA Turpin Unavailable Jose Antonio Turner Unavailable Unavailable Reason For Referral No Information Medications Medication SIG (Take, Route, Frequency, Duration) Notes Start Date End Date Status quinapril 10 MG Oral Tablet ORAL quinapril 10 MG Oral TabletOriginal Medicationquinapril 10 MG Oral Tablet *Reorder from [employer]acts for eRx and Interaction Alerts* 12/05/2014 Active Furosemide 20 MG Oral Tablet ORAL furosemide 20 MG Oral TabletOriginal Medicationfurosemide 20 MG Oral Tablet *Reorder from [employer]pan for eRx and Interaction Alerts* 12/05/2014 Active Plan Of Treatment No Information Insurance Providers Payer Name Payer Address Payer Phone Subscriber Number Group Number Insured Name Patient Relationship to Insured Coverage Start Date Coverage End Date [facility] [address] [place], [place] [id number] [id number] BUSBY Self - patient is the insured
--- OUTSIDE RECORDS SUMMARY | 2025-04-05 18:31 | XMS_ITS | Clinical Summary ---
Author Organization [facility] Address [address] [place] [address] Care Team Providers Care Financial Management Name Role Phone Hussein Cárdenas MD Primary [...] Encounters Date Type Department Care Team Description 02/28/2025 12:14 PM CDT - 02/28/2025 11:59 PM CDT Hospital Encounter [facility] [address] [place] [address] Arsen Beck MD Low back pain with bilateral sciatica, unspecified back pain laterality, unspecified chronicity (Primary Dx) Discharge Disposition: Discharge to home or self care 01/11/2025 Orders Only [facility] Medicine Orthopaedic Surgery [address] [facility] Medical Office Building [address] [place] [phone] Arsen Beck MD Low back pain with bilateral sciatica, unspecified back pain laterality, unspecified chronicity (Primary Dx) from Last 3 Months Surgical History Surgery Date Site/Laterality Comments FL UPPER GI AIR CONTRAST W KUB 10/10/2024 Bilateral FL UPPER GI AIR CONTRAST W KUB 11/21/2024 Bilateral FL UPPER GI AIR CONTRAST W KUB 02/28/2025 Bilateral Social History Tobacco Use Types Packs/Day Years Used Date Smoking Tobacco: Never Tobacco Cessation:Counseling Given: Not Answered Comments Unknown Sex and Gender Information Value Date Recorded Sex Assigned at Not on file Legal Sex Female 7:05 PM CURTAIN CLEANER Gender Identity Not on file Sexual Orientation Not on file Obstetrics History Last Filed Vital Signs Vital Sign Reading Time Taken Comments Blood Pressure 128/76 02/28/2025 1:23 PM CDT Pulse 73 02/28/2025 1:23 PM CDT Temperature 36.8 C (98.2 F) 01/03/2015 12:43 PM CDT Respiratory Rate 16 02/28/2025 1:23 PM CDT Oxygen Saturation 99% 01/03/2015 12:43 PM CDT Inhaled Oxygen Concentration - - Weight 109.3 kg (241 lb) 09/01/2024 5:06 PM CDT Height 165.1 cm (5' 5) 09/01/2024 5:06 PM CDT Body Mass Index [...] 65+ 2020 Covid-19 Vaccine (2023-2 5 season) 2025 02/14/2024, 03/07/2023, 10/08/2022, Additional history exists Influenza Vaccine (#1) 2025 , 02/28/2023, 03/14/2022, Additional history exists DTaP/Tdap/Td Vaccine (3 - Td or Tdap) 12/11/2031 12/10/2021, 12/28/2016 Zoster Vaccine Completed 06/01/2022, 03/21/2022 Procedures Procedure Name Priority Date/Time Associated Diagnosis Comments TRANSFORAMINAL EPIDURAL INJECTION LUMBAR SACRAL FIRST LEVEL BILATERAL Schedule Routine, Read Routine (OP Routine) 02/28/2025 1:18 PM CDT Low back pain with bilateral sciatica, unspecified back pain laterality, unspecified chronicity from Last 3 Months Results * IR Transforaminal Epidural Injection Lumbar Sacral First Level Bilateral (02/28/2025 1:18 PM CDT) Narrative [facility] - 02/28/2025 1:19 PM CDT The images from this study are not interpreted by Radiology. Please refer to the physician's procedure / OR operative note. us Arsen Beck MD IMG IR PROCEDURES Final Res ult [facility] from Last 3 Months Insurance AETNA MEDICARE AETNA MEDICARE Care Teams Financial Management Relationship Specialty Start Date End Date Hussein Cárdenas MD [address] [email or web address] [address] [place], [place] [id number] PCP - General Family Medicine 09/01/24
== END 2025-04-05 14:23 | disposition home or self-care (01) ==
LOC: ANHFOHIMG 14:24
PROVIDERS: PCP Family Medicine; Visit Provider Physician Assistant Medical
DX: Z12.31 Encounter for screening mammogram for malignant neoplasm of breast (principal)
CPT/HCPCS: 77063; 77067